=== PATIENT | female | born 1955 | race Caucasian/White ===

== ENCOUNTER 2020-06-04 09:44 | Outpatient (CLI) | payer MEDICARE, SELFPAY ==
--- NOTE | ~2020-06-04 | DEXA_ITS ---
Bone Density Report Name: Dolores Martinez Age: 64 Sex: Female Ethnicity: White Date of : 1955 Indication: postmenopausal; height loss; prior fracture; Referring Provider: Jimmie Boo Study: Bone densitometry was performed. Exam Date: June 04, 2020 Accession number: [id number] Bone Density: Region BMD T-score Z-score Classification AP Spine (L1-L4) 0.976 -0.6 1.2 Normal Femoral Neck (Left) 0.719 -1.2 0.4 Osteopenia Total Hip (Left) 0.893 -0.4 0.9 Normal Total Hip Bilateral Avg 0.907 -0.3 1.0 Normal Femoral Neck (Right) 0.723 -1.1 0.4 Osteopenia Total Hip (Right) 0.919 -0.2 1.1 Normal World Health Organization criteria for BMD impression classify patients as: Normal (T-score at or above -1.0), Osteopenia (T-score between -1.0 and -2.5), or Osteoporosis (T-score at or below -2.5). 10-year Fracture Risk(1): Major Osteoporotic Fracture 13% Hip Fracture 1.1% Reported Risk Factors: [place] (), Neck BMD=0.719, BMI=31.6, previous fracture (1) FRAX(R) Version 3.08. Fracture probability calculated for an untreated patient. Fracture probability may be lower if the patient has received treatment. Previous Exams: Region Exam Age BMD T-score BMD Change BMD Change Date g/cm2 vs Baseline vs Previous AP Spine(L1-L4) 06/04/2020 64 0.976 -0.6 -0.234(-19.3%) -0.234(-19.3%) 12/28/2006 51 1.210 1.5 Total Hip(Left) 06/04/2020 64 0.893 -0.4 -0.105(-10.5%) -0.105(-10.5%) 12/28/2006 51 0.998 0.5 Total Hip(Right) 06/04/2020 64 0.919 -0.2 -0.072(-7.2%)# -0.072(-7.2%)# 12/28/2006 51 0.991 0.4 *Denotes significance at 95% confidence level, LSC for AP Spine = 0.022 g/cm2, LSC for Total Hip = 0.027 g/cm2 Clinical Information Provided by Patient: Has had a low trauma fracture Has used the following medications: Vitamin D Patient maximum height was 67 Menopause Age: 50 No regular weight bearing exercise Does not regularly consume dairy products Drinks caffeinated beverages Onset of menses at age 13 Number of children 2 Impression: The patient has low bone mass, based on the Left Femoral Neck T-score. The patient has an estimated ten-year risk of hip fracture of 1.1% and an estimated ten-year risk of major fracture of 13%, based on the WHO FRAX algorithm. The patient has risk factors, including: previous fracture. No significant bone loss was observed. Discussion: BONE DENSITY IS LOW AT ONE OR MORE SKELETAL SITES. Th
--- NOTE | ~2020-06-04 | MM_ITS ---
EXAMINATION: MM screening swetha BI w jenaro HISTORY: Screening TECHNIQUE: Craniocaudal and mediolateral oblique 3-D tomosynthesis images were obtained and synthetic 2-D images were generated. CAD analysis was submitted and interpreted. COMPARISON: Comparison to multiple prior studies sequentially, with oldest reviewed study dated 04/13. BREAST PARENCHYMAL COMPOSITION: There are scattered areas of fibroglandular density. FINDINGS: There is no evidence of suspicious mass, calcification, or architectural distortion to sugg est malignancy in either breast. There has been no suspicious interval change. IMPRESSION: 1. No mammographic evidence of malignancy. 2. Recommend routine screening mammography in one year. BI-RADS Category 1: Negative Reviewed, dictated and finalized at location A.
== END 2020-06-04 09:45 | disposition home or self-care (01) ==
LOC: ANHIMG 09:47
PROVIDERS: PCP Family Medicine; Visit Provider Family Medicine
DX: Z12.31 Encounter for screening mammogram for malignant neoplasm of breast (principal); Z78.0 Asymptomatic menopausal state; M85.89 Other specified disorders of bone density and structure, multiple sites
CPT/HCPCS: 77063; 77067; 77080

== ENCOUNTER 2020-12-20 10:46 | Outpatient (CLI) | payer MEDICARE, SELFPAY | END 2020-12-20 10:47 | disposition home or self-care (01) | LOC: ANHCOVIDVC 10:46 | PROVIDERS: PCP Family Medicine | DX: Z23 Encounter for immunization (principal) | CPT/HCPCS: 0001A; 91300 ==

== ENCOUNTER 2021-01-10 10:43 | Outpatient (CLI) | payer MEDICARE, SELFPAY | END 2021-01-10 10:44 | disposition home or self-care (01) | LOC: ANHCOVIDVC 10:43 | PROVIDERS: PCP Family Medicine | DX: Z23 Encounter for immunization (principal) | CPT/HCPCS: 0002A; 91300 ==

== ENCOUNTER → 2021-02-21 10:07 | Outpatient (CLI) | payer MEDICARE, SELFPAY ==
--- NOTE | ~2021-02-21 | CT_ITS ---
EXAMINATION: CT lung screening DATE: 02/21/2021 10:47 INDICATION: Personal history of nicotine dependence, prior smoker with 30 pack year history TECHNIQUE: Computed tomography (CT) of the chest was performed without intravenous contrast. The dose -length product (DLP) was 226.43 mGy-cm. Automated exposure control and iterative reconstruction tech [employer] were employed. COMPARISON: None FINDINGS: There is mild emphysema. A 5 mm nodule is present in the right lower lobe on image 53. Calc ified pulmonary nodules are consistent with old granulomatous disease. No pathologically enlarged tho racic lymph nodes are identified. The heart size is normal. Calcified coronary artery atherosclerosis is noted. There is no pleural effusion or pneumothorax. The gallbladder is surgically absent. There is severe thoracic spondylosis. IMPRESSION: 1. Lung-RADS category 2: Benign appearance or behavior. Continue annual screening with noncontrast lo w-dose chest CT in 12 months. Reviewed, dictated and finalized at location A. IMPRESSION: 1. Lung-RADS category 2: Benign appearance or behavior. Continue annual screeni ng with noncontrast low-dose chest CT in 12 months.
== END ==
PROVIDERS: Visit Provider Family Medicine
DX: Z12.2 Encounter for screening for malignant neoplasm of respiratory organs (principal); Z87.891 Personal history of nicotine dependence
CPT/HCPCS: 71271

== ENCOUNTER → 2021-05-06 07:37 | Outpatient (CLI) | payer MEDICARE, SELFPAY ==
--- NOTE | ~2021-05-06 | US_ITS ---
EXAMINATION: US abdomen complete EXAM DATE: 05/06/2021 08:32 INDICATION: Abnormal levels of other serum enzymes. TECHNIQUE: Multiple grayscale and Doppler images of the complete abdomen were obtained (by a technolo gist who performed the scan) and subsequently reviewed. There is no prior study for comparison. FINDINGS: The abdominal aorta is normal in caliber. Visualized portion IVC is patent. The pancreatic head a nd body are normal in appearance. The pancreatic tail is not visualized. There is echogenic liver parenchyma, hepatic steatosis. There are no focal liver lesions identified. There is no evidence of intrahepatic biliary duct dilation. Portal venous flow was seen in the he patopedal, normal direction and has normal Doppler waveform. Common bile duct measures 8 mm, which is normal. The gallbladder fossa is unremarkable. Right kidney: There is normal contour and echogenicity. It measures 11.8 x 4.8 x 5.4 centimeters. There are no focal renal lesions identified. There is no hydronephrosis. Left kidney: There is normal contour and echogenicity. It measures 9.6 x 5.8 x 5.3 centimeters. Th ere are no focal renal lesions identified. There is no hydronephrosis. The spleen measures 10.1 centimeters and is morphologically normal. IMPRESSION: 1. Hepatic steatosis. Reviewed, dictated and finalized at location A. IMPRESSION: 1. Hepatic steatosis.
== END ==
PROVIDERS: PCP Family Medicine; Visit Provider Family Medicine
DX: K76.0 Fatty (change of) liver, not elsewhere classified (principal)
CPT/HCPCS: 76700

== ENCOUNTER 2021-07-13 09:00 | Outpatient (CLI) | payer MEDICARE, SELFPAY ==
--- NOTE | ~2021-07-13 | MM_ITS ---
EXAMINATION: MM screening swetha BI w jenaro HISTORY: Screening mammogram TECHNIQUE: Craniocaudal and mediolateral oblique 3-D tomosynthesis images were obtained and synthetic 2-D images were generated. CAD analysis was submitted and interpreted. COMPARISON: 06/04/2020, 04/13/2017 bilateral digital screening mammogram examinations BREAST PARENCHYMAL COMPOSITION: There are scattered areas of fibroglandular density. FINDINGS: Stable small circumscribed opacities in the mid to upper outer right breast, likely small b enign intramammary lymph nodes. Stable small intramammary lymph node in the mid outer left breast. Th ere is no evidence of suspicious mass, calcification, or architectural distortion to suggest malignan cy in either breast. There has been no suspicious interval change. IMPRESSION: 1. No mammographic evidence of malignancy. 2. Recommend routine screening mammography in one year. BI-RADS Category 2: Benign finding(s). Reviewed, dictated and finalized at location A.
== END 2021-07-13 09:01 | disposition home or self-care (01) ==
LOC: ANHIMG 09:04
PROVIDERS: PCP Family Medicine; Visit Provider Family Medicine
DX: Z12.31 Encounter for screening mammogram for malignant neoplasm of breast (principal)
CPT/HCPCS: 77063; 77067

== ENCOUNTER 2021-09-02 07:41 | Outpatient (CLI) | payer MEDICARE, SELFPAY ==
--- NOTE | 2021-09-02 | ECHO_ITS ---
Patient Info Name: Dolores Martinez Age: 65 years : 1955 Gender: Female Ht: 66 in Wt: 195 lbs BSA: 2.06 m2 HR: 61 bpm BP: 164 / 98 mmHg Technical Quality: Fair Exam Date: 09/02/2021 8:17 AM Exam Location: [facility] [place] Patient Status: Outpatient Admit Date: 09/02/2021 Staff Ordering Physician: JOHNNY KIRK MD Revenue Liaison: Lisbeth Hoover RDCS Attending Provider: JOHNNY KIRK MD Referring Physician: SHAIKH SALINAS; Exam Type: CA echo doppler color flow Study Info Indications R01.1 - Cardiac murmur, unspecified Complete two-dimensional, color flow and Doppler transthoracic echocardiogram is performed. Summary 1. Complete two-dimensional, color flow and Doppler transthoracic echocardiogram is performed. 2. Left ventricular chamber dimension is normal. 3. Left ventricular systolic function is normal, estimated at 60-65%. 4. There is mildly increased left ventricular wall thickness. 5. The left ventricular diastolic function is grade II diastolic dysfunction. 6. Global longitudinal strain is normal at -17.2%. 7. Left atrial chamber dimension is mildly enlarged. 8. There is moderate aortic valve sclerosis. 9. There is moderate aortic valve stenosis based on a peak velocity of 346 cm/s, mean gradient of 30 mmHg, and aortic valve area of 1.1 cm2. 10. There is trace aortic valve regurgitation. 11. The mitral valve has moderately calcified annulus. 12. There is trace mitral valve regurgitation. 13. Linear mass measuring 2.3 cm attached to anterior mitral valve annulus in left atrium seen only in 4 chamber view, suggests probable artifact. Consider KAVITA or cardiac CTA or MRI if clinically indicated. 14. No pulmonary hypertension, estimated pulmonary arterial systolic pressure is 36 mmHg. Left Ventricle Tissue doppler is not performed. Global longitudinal strain is normal at -17.2%. Left ventricular chamber dimension is normal. Left ventricular systolic function is normal, estimated at 60-65%. There is mildly increased left ventricular wall thickness. The left ventricular diastolic function is grade II diastolic dysfunction. Right Ventricle Right ventricular chamber dimension is normal. Right ventricular systolic function is normal and with normal TAPSE 2.3 cm. Left Atria Left atrial chamber dimension is mildly enlarged. Right Atria Right atrial chamber dimension is normal. Aortic Valve The aortic valve is not well visualized. Cannot determine number of aortic valve leaflets. There is moderate aortic valve sclerosis. There is moderate aortic valve stenosis based on a peak velocity of 346 cm/s, mean gradient of 30 mmHg, and aortic valve area of 1.1 cm2. There is trace aortic valve regurgitation. Pulmonic Valve There is no pulmonic regurgitation. Mitral Valve The mitral valve has moderately calcified annulus. There is no mitral valve stenosis. There is trace mitral valve regurgitation. Linear mass measuring 2.3 cm attached to anterior mitral valve annulus in left atrium seen only in 4 chamber view, suggests probable artifact. Consider KAVITA or cardiac CTA or MRI if clinically indicated. Tricuspid Valve There is no tricuspid valve regurgitation. No pulmonary hypertension, estimated pulmonary arterial systolic pressure is 36 mmHg. Pericardium/Pleural There is no pericardial effusion. Inferior Vena Cava Normal inferior vena cava with >50% collapse upon inspiration consistent with normal right atrial pressure, 5 mmHg. Aorta The aortic ro
== END 2021-09-02 07:42 | disposition home or self-care (01) ==
LOC: ANHCARD 07:47
PROVIDERS: PCP Family Medicine
DX: R01.1 Cardiac murmur, unspecified (principal)
CPT/HCPCS: 93306

== ENCOUNTER 2022-02-15 10:32 | Emergency (ER) | payer MEDICARE, SELFPAY ==
--- NOTE | ~2022-02-15 | XR_ITS ---
EXAMINATION: XR foot RT min 3V, XR ankle RT min 3V DATE: 02/15/2022 10:50 INDICATION: Right foot and ankle pain post trauma TECHNIQUE: 1. Anteroposterior, mortise, additional oblique and lateral view of the right ankle were obtained. 2. Dorsoplantar, two oblique and lateral views of the right foot were obtained. COMPARISON: None. FINDINGS: Prior internal fixation of an old healed lateral malleolar fracture with an interfragmentary screw an d lateral plate and screw fixation. There are also postoperative change of prior bunionectomy and ernie lignment osteotomies at the neck of the first metatarsal fixed with a pair of screws and at the neck of the proximal phalanx with medial sided cerclage wire. Additional likely chronic osteotomy at the h ead of the fifth proximal phalanx with widening of the fifth proximal interphalangeal joint. Chronic corticated ossicles along the tip the medial malleolus likely sequela of chronic medial ankle sprain. Ossific density along the dorsal neck of the talus of indeterminate age but would favor chronic whic h could be either degenerative or more likely sequela of old avulsion injury. No definitive acute fra cture. 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 The soft tissues are unremarkable. IMPRESSION: 1. Age-indeterminate but more likely chronic small ossicle at the dorsal neck of the talus which coul d be either degenerative or sequela of an avulsion fracture. Correlate for point tenderness at this l ocation. 2. Multiple chronic postoperative changes at the right foot and ankle as detailed above. Reviewed, dictated and finalized at location B. IMPRESSION: 1. Age-indeterminate but more likely chronic small ossicle at the dorsal neck o f the talus which could be either degenerative or sequela of an avulsion fractu re. Correlate for point tenderness at this location. 2. Multiple chronic postoperative changes at the right foot and ankle as detail ed above.
--- NOTE | 2022-02-15 10:48 | ED.LOWEXIN ---
HPI - Extremity Injury (Lower) General Chief Complaint: Extremity Injury, Lower Stated Complaint: R ANKLE INJURY Time Seen by Provider: 02/15/22 10:48 Source: patient Mode of arrival: ambulatory Limitations: no limitations History of Present Illness HPI Narrative: Ms. Geronimo is a 66-year-old female patient presenting to the clinic today with complaints of right ankle/foot pain after tripping off her porch yesterday. She reports that she tripped due to a rake on the porch. She has had prior surgery to the ankle and is concerned that she may have injured it further. Is having pain with walking otherwise pain is very mild. Related Data Allergies Allergy/AdvReac Type Severity Reaction Status Date / Time bimatoprost [From Lumigan] Allergy Severe eye red Verified 02/15/22 10:40 erythromycin base Allergy Unknown Nausea Verified 02/15/22 10:40 potassium iodide Allergy Unknown swelling Verified 02/15/22 10:40 PIMA INHALER Allergy Mild FACIAL Uncoded 02/15/22 10:40 TINGLING Review of Systems Review of Systems: Pertinent positives per HPI. Patient denies any fever, chills, rash, headache, visual changes, dizziness, cough, runny nose, sore throat, shortness of breath, chest pain, palpitations, nausea, vomiting, diarrhea, constipation, abdominal pain, or any urinary issues. PMFSH Family History Family History Father Family history of cardiovascular disease Family history of dementia Sibling Family history of lung cancer, Onset Age: 51 Other Family history of allergic disorder Family history of glaucoma Family history of headache disorder Social History Social History Alcohol intake: current Comments At the time of my signature, I reviewed and agree with the nursing past medical, surgical, social, and family history. There is no relevant family history pertinent to the patient complaint. Exam Narrative: General: Well-developed, well nourished, in no apparent distress Head: Normocephalic, atraumatic. Cardio: Regular rate and rhythm, s1 and s2 normal, no murmur appreciated. Resp: Clear to auscultation bilaterally, no rhonchi, rales, wheezing or rubs. Musculoskeletal: No deformity, mild tenderness to palpation over the lateral right ankle and lateral/medial proximal foot. Is able to walk on it however it is painful, grossly normal range of motion, muscle strength strong and equal, peripheral pulse strong, mild swelling over the lateral right ankle and foot, no cyanosis, normal gait and station Course Course Emergency Course: Portions of this record may have been created with voice recognition software. Level of Care: Express Care Visit Vital Signs Vital signs: Vital Signs Temperature 36.4 C 02/15/22 10:56 Pulse Rate 76 02/15/22 10:56 Respiratory Rate 16 02/15/22 10:56 Blood Pressure 157/93 H 02/15/22 10:56 Pulse Oximetry 99 02/15/22 10:56 Temperature 36.4 C 02/15/22 10:56 Pulse Rate 76 02/15/22 10:56 Respiratory Rate 16 02/15/22 10:56 Blood Pressure 157/93 H 02/15/22 10:56 Pulse Oximetry 99 02/15/22 10:56 Vital signs reviewed MDM - Extremity Injury (Lower) MDM Narrative Medical decision making narrative: At the time of visit patient is resting comfortably on the exam table, x-rays were performed and were negative for any fracture or malalignment and all her hardware is intact however, there is a age-indeterminate suspicious old ossicle avulsion fracture of the talus bone. I suspect that she has had ankle strain/foot strain since this avulsion fracture appears to be from her previous injury. We will apply Werner wrap to the right ankle and foot and supportive measures were discussed with patient she voiced understanding of discharge. We will have her follow-up with her orthopedic for further evaluation if symptoms persist. Differential Diagnosis D
[2022-02-15 10:56] VITALS: BP 157/93; PULSE 76; RESP 16; TEMP 36.4; O2SAT 99
== END 2022-02-15 11:25 | disposition home or self-care (01) ==
PROVIDERS: Emergency Provider Nurse Practitioner Family; PCP Family Medicine
DX: S93.401A Sprain of unspecified ligament of right ankle, initial encounter (principal); S96.911A Strain of unspecified muscle and tendon at ankle and foot level, right foot, initial encounter; W01.0XXA Fall on same level from slipping, tripping and stumbling without subsequent striking against object, initial encounter; I10 Essential (primary) hypertension
CPT/HCPCS: 73610; 73630; 99213; G0463

== ENCOUNTER 2022-09-27 01:03 | Day surgery (SDC) | payer MEDICARE, SELFPAY ==
[2022-09-26 15:19] VITALS: BMI 30.5
[2022-09-27] VITALS (14 sets, daily range): BP systolic 114–163; BP diastolic 84–100; PULSE 65–76; RESP 12–20; TEMP 36.4–36.7; O2SAT 94–100; BMI 31.6
--- NOTE | 2022-09-27 10:20 | WPDMODSED ---
Moderate Sedation Note-Pt Data Patient Data Diagnosis: Aortic stenosis, mitral valve echodensity Present Complaint: None Procedure to be performed/Plan: Elective transesophageal echocardiogram Allergies Allergy/AdvReac Type Severity Reaction Status Date / Time bimatoprost [From Lumigan] Allergy Severe eye red Verified 09/27/22 09:05 erythromycin base Allergy Unknown Nausea Verified 09/27/22 09:05 potassium iodide Allergy Unknown swelling Verified 09/27/22 09:05 morphine Allergy Nausea and Verified 09/27/22 09:05 Vomiting PIMA INHALER Allergy Mild FACIAL Uncoded 09/27/22 09:05 TINGLING Home Medications Medication Instructions Recorded Confirmed Type citalopram 20 mg tablet See Rx Instructions .Route 06/28/22 09/26/22 Rx .COMPLEX #90 tabs amlodipine 5 mg tablet See Rx Instructions .Route 08/01/22 09/27/22 Rx .COMPLEX #90 tabs losartan 100 mg tablet See Rx Instructions .Route 09/04/22 09/27/22 Rx .COMPLEX #90 tabs hydrochlorothiazide 25 mg tablet See Rx Instructions .Route 09/05/22 09/26/22 Rx .COMPLEX #90 tabs Lactobac 51-Bifidobac 1 cap PO DAILY 09/26/22 09/26/22 History 3-L.lactis-S.thermophilus 4 billion cell capsule (Daily Probiotic (10 Strains)) cholecalciferol (vitamin D3) 25 75 mcg PO DAILY 09/26/22 09/26/22 History mcg (1,000 unit) capsule (Vitamin D3) famotidine 20 mg tablet 20 mg PO DAILY 09/26/22 09/26/22 History thiamine HCl (vitamin B1) 100 mg 100 mg PO DAILY 09/26/22 09/26/22 History tablet Sedation/Anesthesia: No previous sedation/anesthesia problems (including family history). [facility] Past Medical History Medical History Aortic stenosis 12-21 aortic stenosis 1.1cm2 needs yearly echo Essential (primary) hypertension Rheumatoid arthritis Seeing specialist at [facility] Family History Family History Father Family history of cardiovascular disease Family history of dementia Sibling Family history of lung cancer, Onset Age: 51 Other Family history of allergic disorder Family history of glaucoma Family history of headache disorder Social History Social History Smoking packs per day: 0.5 Smoking cigarettes per day: 10.0 Years smoked: 25 Smoking pack-years: 12.50 Smoking status: Former smoker Tobacco type: cigarettes Second hand tobacco smoke exposure: Yes Smoking end date: 11/20/06 Additional smoking assessment comments: QUIT SMOKING 15 YEARS AGO Alcohol intake: current Drinks per week: 15 Alcohol use details: UP TO 3 GLASSES OF WINE NEAR DAILY Substance use: never Substance use type: does not use Living arrangements: alone Spiritual care concerns: No Mod Sed Physical Exam Physical Exam Pre Procedural Exam: Normal: Appearance, Eyes, Ears, Nose, Neck (Neck supple, normal range of motion), Throat (Posterior hypopharynx clear, nonerythematous), Airway (Normal anatomy, no obstruction), Lungs (Clear to auscultation bilaterally), Heart Size, Heart Rate, Heart Rhythm (Late-peaking systolic murmur), Neuro Exam, Abdomen, Breasts, Extremities and Skin Hours since solid foods: 12 Hours since liquid intake: 12 Mallampati Classification: class II Internal Medicine - PN: Obj Da Vital Signs Vital Signs: Vital Signs - 24 hr 09/27/22 09:07 09/27/22 10:25 09/27/22 11:15 Temperature 36.7 C 36.4 C L Pulse Rate 69 69 68 Respiratory Rate 13 20 15 Blood Pressure 149/84 H 163/95 H 135/92 H Pulse Oximetry 97 97 94 Oxygen Delivery Room Air Room Air Room Air Oxygen Flow Rate 09/27/22 10:26 09/27/22 10:30 09/27/22 10:35 Temperature Pulse Rate 76 73 Respiratory Rate 18 16 13 Blood Pressure 160/90 H Pulse Oximetry 98 100 94 Oxygen Delivery Nasal Cannula Nasal Cannula Nasal Cannula Oxygen Flow Rate 2 2 3 09/27/22 10:37 09/27/22
--- NOTE | 2022-09-27 12:17 | WPDHPUPDATE1 ---
History and Physical Update Update Date/Time: 09/27/22 10:20 History and Physical has been reviewed, including an updated exam of the patient. There are NO changes in the patient's condition. Risks, benefits, and alternatives have been discussed and questions answered. Patient agrees to proceed with procedure.
--- NOTE | 2022-09-27 12:17 | WPDTEECHO ---
[facility] TransEsophageal Echocardiogram Date of procedure: 09/27/22 Procedure Type: Elective Transesophageal echocardiogram Diagnosis: Aortic stenosis, mitral valve echodensity Indications: Aortic stenosis, mitral valve echodensity Image Quality: Acceptable Findings: Brief history present illness: Patient is a pleasant 66-year-old female with a past medical history significant for polyarthritis, hypertension, aortic stenosis and echodensity noted on mitral valve by surface echocardiogram referred for transesophageal echocardiogram for clarification of aortic valve anatomy and mitral valve pathology. Procedure in detail: After verbal and written informed consent was obtained the patient risks, benefits, and alternatives explained in detail the patient agreed to proceed with the plan of care as outlined above. The patient was evaluated at bedside in the [facility] procedure room. The posterior oropharynx, neck, and jaw angle all within normal limits on examination. Lungs were clear to auscultation. See pre-sedation note for further details The patient was then placed in the appropriate 30 to 45 degree angle supine position at a slight left lateral decubitus position. Patient was monitored throughout the study with telemetry, oxygen saturation, end-tidal CO2 monitoring, blood pressure, heart rate, and respirations. The posterior hypopharynx was then locally anesthetized using repeated administration of Hurricaine spray as well as gargled viscous lidocaine. After local anesthetic of the posterior hypopharynx was achieved and the oral bite block placed, moderate sedation was administered. After confirmation of adequate moderate sedation, the transesophageal echocardiogram probe was advanced through the oral bite block into the posterior hypopharynx and into the esophagus easily and without complication. Multiple, multiplanar echocardiographic images were obtained in multiple standard re- projections. Pulsed wave, continuous-wave, and color-flow Doppler were utilized in conjunction with this study. At the conclusion of the study, the transesophageal echocardiogram probe was removed easily and without complication. The patient tolerated the procedure well without difficulty. Patient was in sinus rhythm throughout the study. Moderate Sedation/Anesthesia administration: Patient reports no prior problems with sedation/anesthesia. Please see pre-sedation noted for physical examination documentation. As noted above, after adequate local anesthesia of the posterior hypopharynx was achieved, a total of 4 mg intravenous Versed and a total of 100 mcg intravenous Fentanyl in multiple divided doses was administered for moderate sedation. Sedation start time was 1029 and end time was 1053 for a total intra-service/procedure face-face time of 24 minutes. Sedation was administered by a qualified/certified observer Danii Gallardo RN under my supervision with intra-procedure [id number] observation and management throughout the entirety of the procedure. There were no other issues or complications and patient tolerated the procedure well. See post-anesthesia documentation. FINDINGS: LEFT VENTRICLE: Size and systolic function were within normal limits without wall motion abnormalities with ejection fraction of 60%, mild concentric left ventricle hypertrophy. Prominent papillary muscles.. RIGHT VENTRICLE: Size and systolic function within normal limits. LEFT ATRIUM: Normal size. RIGHT ATRIUM: Normal size. INTERATRIAL SEPTUM: Interatrial septum is thin and somewhat hypermobile otherwise anatomically normal without evidence of shunt with color-flow Doppler nor with injection of agitated saline with and without Valsalva. MITRAL VALVE: Mitral valve is anatomically normal with preserved leaflet excursion and trivial regurgitation. Minimal thickening of the leaflet tips without mobile echodensity noted. AORTIC VALVE: The aortic valve was di
== END 2022-09-27 12:00 | disposition home or self-care (01) ==
PROVIDERS: PCP Family Medicine; Visit Provider Internal Medicine Cardiovascular Disease
PROC: (CPT 93312; principal; 2022-09-27 10:00)
DX: I35.0 Nonrheumatic aortic (valve) stenosis (principal); R93.1 Abnormal findings on diagnostic imaging of heart and coronary circulation; I10 Essential (primary) hypertension; M06.9 Rheumatoid arthritis, unspecified; Z87.891 Personal history of nicotine dependence
CPT/HCPCS: 93312; 93320; 93325; J2250; J3010; J7030

== ENCOUNTER → 2023-04-02 13:19 | Outpatient (CLI) | payer MEDICARE, SELFPAY ==
--- NOTE | ~2023-04-02 | MM_ITS ---
EXAMINATION: MM screening swetha BI w jenaro HISTORY: Screening mammogram TECHNIQUE: Craniocaudal and mediolateral oblique 3-D tomosynthesis images were obtained and synthetic 2-D images were generated. CAD analysis was submitted and interpreted. COMPARISON: 07/13/2021, 06/04/2020, 04/13/2017 bilateral screening mammogram examinations BREAST PARENCHYMAL COMPOSITION: The breasts are almost entirely fatty. FINDINGS: There is no evidence of suspicious mass, calcification, or architectural distortion to sugg est malignancy in either breast. There has been no suspicious interval change. IMPRESSION: 1. No mammographic evidence of malignancy. 2. Recommend routine screening mammography in one year. BI-RADS Category 1: Negative Reviewed, dictated and finalized at location A.
== END ==
PROVIDERS: PCP Family Medicine; Visit Provider Family Medicine
DX: Z12.31 Encounter for screening mammogram for malignant neoplasm of breast (principal)
CPT/HCPCS: 77063; 77067

== ENCOUNTER → 2023-05-03 09:21 | Outpatient (CLI) | payer MEDICARE, SELFPAY ==
--- NOTE | ~2023-05-03 | CT_ITS ---
EXAMINATION: CT lung screening DATE: 05/03/2023 09:36 INDICATION: Personal history of nicotine dependence, prior smoker with 30 pack year history TECHNIQUE: Computed tomography (CT) of the chest was performed without intravenous contrast. The dose -length product (DLP) was 263.49 mGy-cm. Automated exposure control and iterative reconstruction tech [employer] were employed. COMPARISON: 02/21/2021 FINDINGS: There are stable, scattered nodules of the lungs, the largest of which measures 5 mm in the right lower lobe. There is mild emphysema. Calcified pulmonary nodules are consistent with old granu lomatous disease. No pleural effusion or pneumothorax. No pathologically enlarged thoracic lymph node s are identified. The heart size is normal. Calcified coronary artery atherosclerosis is noted. There is severe thoracic spondylosis. IMPRESSION: 1. Lung-RADS category 2: Benign appearance or behavior. Continue annual screening with noncontrast lo w-dose chest CT in 12 months. Reviewed, dictated and finalized at location L. IMPRESSION: 1. Lung-RADS category 2: Benign appearance or behavior. Continue annual screeni ng with noncontrast low-dose chest CT in 12 months.
== END ==
PROVIDERS: PCP Family Medicine; Visit Provider Family Medicine
DX: Z12.2 Encounter for screening for malignant neoplasm of respiratory organs (principal); Z87.891 Personal history of nicotine dependence
CPT/HCPCS: 71271

== ENCOUNTER 2023-07-06 01:05 | Day surgery (SDC) | payer MEDICARE, SELFPAY ==
[2023-07-06] VITALS (18 sets, daily range): BP systolic 102–157; BP diastolic 49–97; PULSE 57–75; RESP 12–20; TEMP 37; O2SAT 95–100; BMI 29.0
[2023-07-06 08:13] LABS: Basophils Percent Auto 0.5 % (0.2-1.2); Eosinophils Absolute Auto 0.1 K/mm3 (0-0.3); Eosinophils Percent Auto 1.7 % (0-4.4); Hemoglobin 13.1 g/dL (12.0-15.0); Immature Granulocyte Absolute 0.01 K/mm3 (0.00-0.031); Immature Granulocyte Percent A 0.2 % (0-0.5); Lymphocytes Absolute Auto 1.49 K/mm3 (0.9-3.2); Lymphocytes Percent Auto 36.3 % (18.3-44.2); Mean Corpuscular HGB Conc 33.6 g/dl (32-36); Mean Corpuscular Hemoglobin 30.6 pg (26-34); Mean Corpuscular Volume 91.1 fl (80-100); Mean Platelet Volume 8.6 fl (7.4-10.4); Monocytes Absolute Auto 0.3 K/mm3 (0.1-0.6); Monocytes Percent Auto 6.6 % (2.6-8.5); Neutrophils Absolute Auto 2.3 K/mm3 (1.3-6.7); Neutrophils Percent Auto 54.7 % (45.5-73.1); Platelet Count Result 162 k/mm3 (150-375); Red Blood Count 4.28 M/mm3 (4.2-5.4); Red Cell Distribution Width 12.6 % (11.5-14.5); White Blood Count 4.1 K/mm3 (4.5-10.0)
[2023-07-06 08:22] LABS: Anion Gap 6 mmol/L (8-16); Blood Urea Nitrogen 10 mg/dL (7-17); Calcium 9.4 mg/dL (8.4-10.2); Carbon Dioxide 30 mmol/L (22-30); Chloride 99 mmol/L (98-107); Estimated CRCL calculation 71 ml/min; Estimated Glomerular Filt Rate > 60; Glucose 94 mg/dL (65-110); INR 0.9; Potassium 3.3 mmol/L (3.4-5.0); Sodium 135 mmol/L (137-145)
--- NOTE | 2023-07-06 09:29 | WPDMODSED ---
Moderate Sedation Note-Pt Data Patient Data Diagnosis: Aortic valve stenosis Present Complaint: no complaints Procedure to be performed/Plan: coronary angiogram Allergies Allergy/AdvReac Type Severity Reaction Status Date / Time bimatoprost [From [place]] Allergy Severe eye red Verified 07/06/23 07:45 potassium iodide Allergy Unknown swelling Verified 07/06/23 07:45 morphine AdvReac Intermediate Nausea and Verified 07/06/23 07:45 Vomiting erythromycin base AdvReac Unknown Nausea Verified 07/06/23 07:45 PIMA INHALER Allergy Mild FACIAL Uncoded 07/05/23 12:44 TINGLING Home Medications Medication Instructions Recorded Confirmed Type Lactobac 51-Bifidobac 1 cap PO DAILY 09/26/22 07/05/23 History 3-L.lactis-S.thermophilus 4 billion cell capsule (Daily Probiotic (10 Strains)) thiamine HCl (vitamin B1) 100 mg 100 mg PO DAILY 09/26/22 07/05/23 History tablet famotidine 20 mg tablet 20 mg PO DAILY #90 tabs 04/27/23 07/05/23 Rx tirzepatide 5 mg/0.5 mL 5 mg (0.5 mL) subcut WEEKLY #6 mL 05/31/23 07/05/23 Rx subcutaneous pen injector (Mounjaro) amlodipine 5 mg tablet 5 mg PO DAILY 07/05/23 07/05/23 History cholecalciferol (vitamin D3) 125 125 mcg PO DAILY 07/05/23 07/05/23 History mcg (5,000 unit) tablet citalopram 20 mg tablet 20 mg PO DAILY 07/05/23 07/05/23 History hydrochlorothiazide 25 mg tablet 25 mg PO DAILY 07/05/23 07/05/23 History losartan 100 mg tablet 100 mg PO DAILY 07/05/23 07/05/23 History Current Medications: Active Medications Sodium Chloride (Normal Saline Iv) 500 mls @ 100 mls/hr IV CONT .Q5H [place] Sedation/Anesthesia: No previous sedation/anesthesia problems (including family history). [facility] Past Medical History Medical History Aortic stenosis 12-21 aortic stenosis 1.1cm2 needs yearly echo Essential (primary) hypertension Rheumatoid arthritis Seeing specialist at [facility] Unspecified nasal polyp Family History Family History Father Family history of cardiovascular disease Family history of dementia Sibling Family history of lung cancer, Onset Age: 51 Other Family history of allergic disorder Family history of glaucoma Family history of headache disorder Social History Social History Smoking packs per day: 1 Smoking cigarettes per day: 20.0 Years smoked: 20 Smoking pack-years: 20.00 Smoking status: Never smoker Tobacco type: cigarettes Second hand tobacco smoke exposure: Yes Smoking end date: 10/22/12 Additional smoking assessment comments: QUIT SMOKING 15 YEARS AGO Alcohol intake: current Drinks per week: 8 Alcohol use details: wine 1-2 with dinner Substance use: never Substance use type: does not use Lack of Transportation: No Lack of Food: Never True Current Housing: I Have Housing Concerned About Future Housing: No Difficulty Paying Gas/Electric Bills: No Difficulty Paying for Meds: No Currently Unemployed: No Education: Trade/Vocational Certificate Difficulty w/ Childcare or Family Care: No Living arrangements: alone Spiritual care concerns: No Mod Sed Physical Exam Physical Exam Pre Procedural Exam: Normal: Appearance, Neck, Throat, Airway, Lungs, Heart Size, Heart Rate, Heart Rhythm, Neuro Exam and Extremities Hours since solid foods: 12 Hours since liquid intake: 12 Mallampati Classification: class II Internal Medicine - PN: Obj Da Vital Signs Vital Signs: Vital Signs - 24 hr 07/06/23 07:50 Temperature 37.0 C Pulse Rate 69 Respiratory Rate 17 Blood Pressure 122/70 Pulse Oximetry 100 Oxygen Delivery Room Air Meds/Results Medications: Active Medications Generic Name Dose Route Start Last Admin Trade Name Freq PRN Reason Stop Dose Admin Sodium Chloride 500 mls @ 100 mls/hr 07/06/23 07:30
--- NOTE | 2023-07-06 09:45 | P.PCNCC_ITS ---
Cardiac Cath Procedure Note Date of procedure:: 07/06/23 Performing physician:: Rick Guzman MD Indication:: pre TAVR workup Brief clinical history:: this is a 67-year-old lady with severe symptomatic aortic stenosis. As part of her pre TAVR workup coronary angiography has been requested. Procedure Procedure performed:: Left and right coronary angiogram Sedation/Medication given:: fentanyl 50 mg Versed 2 mg case start time 9:17 a.m. case end time 9:25 a.m. sedation provided by Belkys Umanzor RN, trained observer Access site:: right femoral artery Estimated blood loss:: less than 20 cc Procedure note:: patient was brought to the cardiac catheterization lab in the postabsorptive state where the right femoral triangle was prepared and draped in normal fashion. Anesthesia was provided with 1% lidocaine infiltrated locally. Using the modified Seldinger technique a 5 [place] [employer] sheath was placed into the right femoral artery. I then used a 5 [place] [employer] FL4 catheter to engage and inject the left coronary artery in multiple projections. Following this a 5 [place] [employer] JR4 catheter was used to engage and inject the right coronary artery in orthogonal projections. Following this the cineangiograms were reviewed and the case was terminated. Patient was taken to the holding area for manual sheath removal. Procedure was well tolerated and uncomplicated there was no evidence of groin hematoma when she left the cardiac catheterization lab. Findings:: Central aortic pressure is 105/72 the left main coronary artery has a superior takeoff but is widely patent and large caliber the left anterior descending is a large caliber artery extending down to the apex the LAD and its branches are smooth and angiographically normal in appearance the circumflex is a large caliber vessel giving rise to the marginal branches. The circumflex is smooth and angiographically normal in appearance the right coronary artery is large in caliber dominant to the posterior circulation it is also smooth and angiographically normal in appearance Conclusion:: 1. right coronary dominant circulation with no angiographic evidence of coronary artery disease Rick Guzman MD [facility]
== END 2023-07-06 15:19 | disposition home or self-care (01) ==
PROVIDERS: PCP Family Medicine; Visit Provider Specialist
PROC: (CPT 93454; principal; 2023-07-06 09:00)
DX: Z01.810 Encounter for preprocedural cardiovascular examination (principal); I35.0 Nonrheumatic aortic (valve) stenosis; I10 Essential (primary) hypertension; M06.9 Rheumatoid arthritis, unspecified; Z87.891 Personal history of nicotine dependence
CPT/HCPCS: 36415; 80048; 85025; 85610; 93454; C1887; C1894; J1644; J2250; J3010; J7040

== ENCOUNTER 2023-11-28 11:30 | Outpatient (RCR) | payer MEDICARE, SELFPAY ==
[2023-08-28 12:07] VITALS: PULSE 72
== END 2023-11-28 12:07 | disposition home or self-care (01) ==
LOC: ANHCPREHAB 11:30
PROVIDERS: PCP Family Medicine; Visit Provider Internal Medicine Cardiovascular Disease
DX: Z95.2 Presence of prosthetic heart valve (principal)
CPT/HCPCS: 93798

== ENCOUNTER 2024-05-06 09:51 | Outpatient (CLI) | payer MEDICARE, SELFPAY ==
--- NOTE | ~2024-05-06 | CT_ITS ---
CT Scan of the Chest without Contrast: Clinical Indication: Lung cancer screening, nicotine dependence Technique: Contiguous sections were acquired throughout the chest without intravenous contrast. Dose reduction technique was used on this scan by utilizing automated exposure control and iterative recon struction technique. The dose-length product (DLP) was 173.53 mGy-cm. COMPARISON: 05/03/2023 Findings: There is no evidence of any significant mediastinal, hilar or axillary lymphadenopathy. Status post a ortic valve replacement. There is no evidence of pleural or pericardial effusion. Stable 5 mm nodule in the superior segment right lower lobe. Stable probable calcified small right ap ical granulomas. Images through the upper abdomen reveal no abnormalities. Impression: Lung RADS 2: Benign appearance. 12 month follow-up screening CT advised. Reviewed, dictated and finalized at [facility]. Impression: Lung RADS 2: Benign appearance. 12 month follow-up screening CT advised.
== END 2024-05-06 09:52 ==
LOC: MICIMG 09:52
PROVIDERS: PCP Family Medicine; Visit Provider Family Medicine
DX: Z12.2 Encounter for screening for malignant neoplasm of respiratory organs (principal); Z87.891 Personal history of nicotine dependence
CPT/HCPCS: 71271

== ENCOUNTER 2024-08-05 01:12 | Day surgery (SDC) | payer MEDICARE, SELFPAY ==
[2024-07-15 15:58] VITALS: BMI 29.9
[2024-08-05 08:47] VITALS: BP 146/80; PULSE 75; RESP 20; TEMP 35.7; O2SAT 100; BMI 29.6
[2024-08-05] MEDS: LACTATED RINGERS 1,000 ML 150 ML IV CONT (08:59)
[2024-08-05] MEDS: GENTAMICIN 80MG/SOD CHL 50 ML 80 MG/50 ML BAG 100 MG IVPB (09:01)
--- NOTE | 2024-08-05 09:19 | WPDANESEPPF ---
Anes - Initial Pre Proc Eval Procedure: Operation Date: 08/05/24 10:00 Proposed Procedures p Screening Colonoscopy - Israel Carpio MD Date/Time: 08/05/24 09:19 Surgeon: Israel Carpio MD Pre Op Diagnosis: neoplasm screening Patient Data Age: 68 Gender: F Height: 1.68 m Weight: 83.2 kg Last Vital Signs Temp 35.7 C L 08/05/24 08:47 Pulse 75 08/05/24 08:47 Resp 20 08/05/24 08:47 BP 146/80 H 08/05/24 08:47 Pulse Ox 100 08/05/24 08:47 O2 Del Method Room Air 08/05/24 08:47 Allergies Allergy/AdvReac Type Severity Reaction Status Date / Time bimatoprost [From Jake] Allergy Severe eye red Verified 08/05/24 08:46 potassium iodide Allergy Unknown swelling Verified 08/05/24 08:46 morphine AdvReac Intermediate Nausea and Verified 08/05/24 08:46 Vomiting erythromycin base AdvReac Unknown Nausea Verified 08/05/24 08:46 PIMA INHALER Allergy Mild FACIAL Uncoded 08/05/24 08:46 [place] Home Medications Medication Instructions Recorded Confirmed Type Lactobac 51-Bifidobac 1 cap PO DAILY 09/26/22 08/05/24 History 3-L.lactis-S.thermophilus 4 billion cell capsule (Daily Probiotic (10 Strains)) thiamine HCl (vitamin B1) 100 mg 100 mg PO DAILY 09/26/22 08/05/24 History tablet cholecalciferol (vitamin D3) 125 125 mcg PO DAILY 07/05/23 08/05/24 History mcg (5,000 unit) tablet citalopram 20 mg tablet 20 mg PO DAILY #90 tabs 10/11/23 08/05/24 Rx hydrochlorothiazide 25 mg tablet 25 mg PO DAILY #90 tabs 10/23/23 08/05/24 Rx losartan 100 mg tablet 100 mg PO DAILY #90 tabs 01/07/24 08/05/24 Rx aspirin 81 mg tablet,delayed 81 mg PO DAILY 03/26/24 08/05/24 History release biotin 5 mg capsule 5 mg PO DAILY 03/26/24 08/05/24 History famotidine 20 mg tablet 20 mg PO DAILY #90 tabs 04/01/24 08/05/24 Rx Patient hx anesthesia problems: none Family hx anesthesia problems: none Results Review: All pre-operative results and documents have been reviewed as part of the pre-operative evaluation. [facility] Past Medical History Medical History (Updated 08/05/24 @ 09:20 by Jose Armando Lopez MD) Aortic stenosis 12-21 aortic stenosis 1.1cm2 needs yearly echo Essential (primary) hypertension Femoral artery transection Hypertension PVD (peripheral vascular disease) Rheumatoid arthritis Seeing specialist at [facility] Unspecified nasal polyp Surgical History Surgical History S/P TAVR (transcatheter aortic valve replacement) Family History Family History Father Family history of cardiovascular disease Family history of dementia Sibling Family history of lung cancer, Onset Age: 51 Other Family history of allergic disorder Family history of glaucoma Family history of headache disorder Social History Social History Smoking packs per day: 0.75 Smoking cigarettes per day: 15.0 Years smoked: 20 Smoking pack-years: 15.00 Smoking status: Former smoker Tobacco type: cigarettes Second hand tobacco smoke exposure: No Smoking end date: 10/22/12 Additional smoking assessment comments: smoked off and on for approximately 20 years Alcohol intake: current Drinks per week: 14 Alcohol use details: wine 1-2 with dinner Substance use: never Substance use type: does not use Lack of Transportation: No Lack of Food: Never True Current Housing: I Have Housing Concerned About Future Housing: No Difficulty Paying Gas/Electric Bills: No Difficulty Paying for Meds: No Currently Unemployed: No Education: Trade/Vocational Certificate Difficulty w/ Childcare or Family Care: No Living arrangements: alone Spiritual care concerns: No Anes - Eval Final PreProcedure Day of Procedure 08/05/24 09:19 Patient weight: obese Heart: regular rate and rhythm
[2024-08-05] MEDS: AMPICILLIN 2 GM/NS 100 ML 2 GM/100 ML BAG IVPB (09:31)
--- NOTE | 2024-08-05 09:47 | PM.HPGS ---
History of Present Illness History of Present Illness Consent: Risks, benefits, and alternatives have been discussed and questions answered. Patient agrees to proceed with procedure. Chief complaint: neoplasm screening Narrative: Dolores Martinez is a 68 year old female here for first colonoscopy, + cologuard Review of Systems Review of Systems: All systems reviewed & are unremarkable except as noted in HPI and below PMFSH Past Medical History Medical History (Updated 08/05/24 @ 09:48 by Israel Carpio MD) Aortic stenosis 12-21 aortic stenosis 1.1cm2 needs yearly echo Essential (primary) hypertension Femoral artery transection Hypertension Positive colorectal cancer screening using Cologuard test PVD (peripheral vascular disease) Rheumatoid arthritis Seeing specialist at [facility] Unspecified nasal polyp Surgical History Surgical History S/P TAVR (transcatheter aortic valve replacement) Family History Family History Father Family history of cardiovascular disease Family history of dementia Sibling Family history of lung cancer, Onset Age: 51 Other Family history of allergic disorder Family history of glaucoma Family history of headache disorder Social History Social History Smoking packs per day: 0.75 Smoking cigarettes per day: 15.0 Years smoked: 20 Smoking pack-years: 15.00 Smoking status: Former smoker Tobacco type: cigarettes Second hand tobacco smoke exposure: No Smoking end date: 10/22/12 Additional smoking assessment comments: smoked off and on for approximately 20 years Alcohol intake: current Drinks per week: 14 Alcohol use details: wine 1-2 with dinner Substance use: never Substance use type: does not use Lack of Transportation: No Lack of Food: Never True Current Housing: I Have Housing Concerned About Future Housing: No Difficulty Paying Gas/Electric Bills: No Difficulty Paying for Meds: No Currently Unemployed: No Education: Trade/Vocational Certificate Difficulty w/ Childcare or Family Care: No Living arrangements: alone Spiritual care concerns: No Meds Home Medications and Allergies Home Medications Medication Instructions Recorded Confirmed Type Lactobac 51-Bifidobac 1 cap PO DAILY 09/26/22 08/05/24 History 3-L.lactis-S.thermophilus 4 billion cell capsule (Daily Probiotic (10 Strains)) thiamine HCl (vitamin B1) 100 mg 100 mg PO DAILY 09/26/22 08/05/24 History tablet cholecalciferol (vitamin D3) 125 125 mcg PO DAILY 07/05/23 08/05/24 History mcg (5,000 unit) tablet citalopram 20 mg tablet 20 mg PO DAILY #90 tabs 10/11/23 08/05/24 Rx hydrochlorothiazide 25 mg tablet 25 mg PO DAILY #90 tabs 10/23/23 08/05/24 Rx losartan 100 mg tablet 100 mg PO DAILY #90 tabs 01/07/24 08/05/24 Rx aspirin 81 mg tablet,delayed 81 mg PO DAILY 03/26/24 08/05/24 History release biotin 5 mg capsule 5 mg PO DAILY 03/26/24 08/05/24 History famotidine 20 mg tablet 20 mg PO DAILY #90 tabs 04/01/24 08/05/24 Rx Allergies Allergy/AdvReac Type Severity Reaction Status Date / Time bimatoprost [From Jake] Allergy Severe eye red Verified 08/05/24 08:46 potassium iodide Allergy Unknown swelling Verified 08/05/24 08:46 morphine AdvReac Intermediate Nausea and Verified 08/05/24 08:46 Vomiting erythromycin base AdvReac Unknown Nausea Verified 08/05/24 08:46 PIMA INHALER Allergy Mild FACIAL Uncoded 08/05/24 08:46 TINGLING Vital Signs Vital Signs - 24 hr 08/05/24 08:47 Temperature 96.3 F L Pulse Rate 75 Respiratory Rate 20 Blood Pressure 146/80 H Pulse Oximetry 100 Oxygen Delivery Room Air Exam Const: General: comfortable and no acute distress HENMT: Face/Nose/Sinus: Normal nares present Eyes: General: appearance blanco
[2024-08-05 10:15] VITALS: BP 112/71; PULSE 74; RESP 20; O2SAT 99
[2024-08-05 10:25] VITALS: BP 164/72; PULSE 71; RESP 20; O2SAT 99
[2024-08-05 10:35] VITALS: BP 155/83; PULSE 74; RESP 18; O2SAT 100
== END 2024-08-05 10:50 | disposition home or self-care (01) ==
PROVIDERS: PCP Family Medicine; Visit Provider Internal Medicine Gastroenterology
PROC: 0DJD8ZZ Inspection of Lower Intestinal Tract, Via Natural or Artificial Opening Endoscopic (ICD-10-PCS; CPT 45378; principal; 2024-08-05 10:00)
DX: Z12.11 Encounter for screening for malignant neoplasm of colon (principal); K63.5 Polyp of colon; K57.30 Diverticulosis of large intestine without perforation or abscess without bleeding; K63.89 Other specified diseases of intestine; Q27.33 Arteriovenous malformation of digestive system vessel; I10 Essential (primary) hypertension; I35.0 Nonrheumatic aortic (valve) stenosis; I73.9 Peripheral vascular disease, unspecified; M06.9 Rheumatoid arthritis, unspecified; E66.9 Obesity, unspecified; Z68.29 Body mass index [BMI] 29.0-29.9, adult; Z79.82 Long term (current) use of aspirin; Z98.890 Other specified postprocedural states; Z95.2 Presence of prosthetic heart valve; Z87.891 Personal history of nicotine dependence; Z80.1 Family history of malignant neoplasm of trachea, bronchus and lung; Z82.49 Family history of ischemic heart disease and other diseases of the circulatory system
CPT/HCPCS: 45388; 45385; 88305; J0290; J1580; J2003; J2704; J7120

== ENCOUNTER 2024-09-10 10:27 | Outpatient (CLI) | payer MEDICARE, SELFPAY ==
--- NOTE | ~2024-09-10 | MM_ITS ---
EXAMINATION: MM screening swetha BI w jenaro HISTORY: Screening mammogram TECHNIQUE: Craniocaudal and mediolateral oblique 3-D tomosynthesis images were obtained and synthetic 2-D images were generated. CAD analysis was submitted and interpreted. COMPARISON: 04/02/2023, 07/13/2021, 06/04/2020 BREAST PARENCHYMAL COMPOSITION:Not Dense. The breasts are almost entirely fatty FINDINGS: No suspicious mass, calcification, or architectural distortion are identified in either [place] ast to suggest malignancy. There has been no suspicious interval change. IMPRESSION: No mammographic evidence of malignancy. Recommend routine screening mammography in one year. BI-RADS Category 1: Negative Reviewed, dictated and finalized at location . [facility] [place]
== END 2024-09-10 10:28 | disposition home or self-care (01) ==
PROVIDERS: PCP Family Medicine; Visit Provider Family Medicine
DX: Z12.31 Encounter for screening mammogram for malignant neoplasm of breast (principal)
CPT/HCPCS: 77063; 77067

== ENCOUNTER 2025-05-25 11:18 | Outpatient (CLI) | payer MEDICARE, SELFPAY ==
--- NOTE | ~2025-05-25 | CT_ITS ---
CT Scan of the Chest without Contrast: Clinical Indication: Lung cancer screening, nicotine dependence Technique: Contiguous sections were acquired throughout the chest without intravenous contrast. Dose reduction technique was used on this scan by utilizing automated exposure control and iterative recon struction technique. The dose-length product (DLP) was 98.88 mGy-cm. COMPARISON: 05/06/2024 Findings: There is no evidence of any significant mediastinal, hilar or axillary lymphadenopathy. Status post a ortic valve replacement. There is no evidence of pleural or pericardial effusion. Stable 3 mm nodule in the medial right lung apex (axial image 18). Stable 6 mm nodule in the superior segment right lower lobe (axial image 53). Images through the upper abdomen reveal no abnormalities. Impression: Lung RADS 2: Benign appearance. 12 month follow-up screening CT advised. Reviewed, dictated and finalized at [facility]. Impression: Lung RADS 2: Benign appearance. 12 month follow-up screening CT advised.
--- OUTSIDE RECORDS SUMMARY | 2025-05-25 11:42 | XMS_ITS | Clinical Summary ---
Author Organization [facility] [address] Address [address] [place] [address] Care Team Providers Care Web Site Project Manager Name Role Phone Rick Santana MD Primary Care Provider [phone] Rick Santana MD Unavailable [phone] Jorgito Rivera MD Unavailable [phone] James Peterson MD Unavailable Allergies Active Allergy Reactions Criticality Noted Date Comments Erythromycin Other (See comments) Low 08/22/2021 Worsen symptoms per patient Bimatoprost Other (See comments) Low 05/23/2022 Red eye Potassium Iodide Other (See comments) Low 1 Per patient- made mouth feel weird Reaction: Medications citalopram (CeleXA) 20 mg tablet Take 1 tablet (20 mg total) by mouth daily 1 Active hydroCHLOROthiaz oliva (HYDRODIURIL) 25 mg tablet Take 1 tablet (25 mg total) by mouth daily 1 Active losartan (COZAAR) 100 mg tablet Take 1 tablet (100 mg total) by mouth daily 1 Active Lactobac no.41/Bifidobact no.7 (PROBIOTIC-10 ORAL) Take by mouth Align probiotic Active thiamine (VITAMIN B1) 100 mg tablet Take 1 tablet (100 mg total) by mouth daily Active cholecalciferol (VITAMIN D-3) 07573 unit tablet Take 1 tablet (10,000 Units total) by mouth daily Active famotidine (PEPCID) 20 mg tablet Take 1 tablet (20 mg total) by mouth daily 3 Active acetaminophen 500 mg capsuleIndicatio ns:Pain Take 2 capsules (1,000 mg total) by mouth every 6 (six) hours as needed for pain 3 Active aspirin 81 mg enteric coated tablet Take 1 tablet (81 mg total) by mouth daily 30 tablet 11 3 03/12/20 26 Active biotin 5 mg tablet Take 1 tablet by mouth daily Active magnesium gluconate 200 mg tabletIndication s:hypomagnesemia 1 tablet (200 mg total) Active metFORMIN (GLUCOPHAGE) 500 mg tablet Take 1 tablet (500 mg total) by mouth 2 (two) times a day with meals Active nitrofurantoin monohydrate (MACROBID) 100 mg capsule Take 1 capsule (100 mg total) by mouth 2 (two) times a day Active Active Problems Problem Noted Date Diagnosed Date PSVT (paroxysmal supraventricular tachycardia) 0 11/23/2023 History of bicuspid aortic valve 09/18/2023 Other specified anemias 09/18/2023 Status post transcatheter ao rtic valve replacement (TAVR) using bioprosthesis 07/23/2023 Assessment & Plan (07/24/2024 1:33 PM CDT): S/p TAVR 1 year TAVR ago. The valve is functioning well. No additional TAVR follow up at this time. Assessment & Plan (08/16/2023 2:14 PM CDT): S/p TAVR 1 month ago. The valve is functioning well. We will plan for a 1 year TAVR follow up. Encounter for examination fo r normal comparison and control in clinical research program 07/10/2023 Abnormal echocardiogram 09/08/2022 WALTRES (dyspnea on exertion) 09/08/2022 Aortic stenosis due to bicuspid aortic valve 11/2021 Mixed hyperlipidemia 05/23/2022 Positive sm/ELECTRONICS PRODUCTION SUPERVISOR antibody 09/28/2021 Anaclitic depression 11/28/2011 Hypertension 11/28/2011 Resolved Problems Problem Noted Date Diagnosed Date Resolved Date Aortic stenosis 07/18/2023 07/24/2024 Nonrheumatic aortic valve stenosis 07/10/2023 07/24/2024 Primary hypertension 05/23/2022 023 Encounters Date Type Department Care Team Description 03/12/2025 10:15 AM CDT Office Visit [facility] Cardiology at [address] [place] [address] James Peterson MD Status post transcatheter aortic valve replacement (TAVR) using bioprosthesis (Primary Dx); Primary hypertension; Mixed hyperlipidemia; PSVT (paroxysmal supraventricular tachycardia) from Last 3 Months Surgical History Surgery Date Site/Laterality Comments EXOSTECTOMY Simple Bunion Exostectomy (Silver Procedure) - (Added by TW Conv) ANKLE FRACTURE SURGERY BLADDER SURGERY 10/22/1998 - 10/21/1999 ANKLE SURGERY 10/22/2001 - 10/21/2002 SINUS SURGERY Bilateral ABDOMINOPLASTY 10/22/1998 - 10/21/1999 BUNIONECTOMY 10/22/1989 - 10/21/1990 CHOLECYSTECTOMY 10/22/2006 - 11/21/2006 ERCP 10/22/2006 - 10/21/2007 EYE SURGERY 09/23/2021 Left glaucoma surgery TRANSCATHETER AORTIC VALVE REPLACEMENT 07/18/2023 29 Evolut FRACTURE SURGERY 08/2002 CARDIAC VALVE REPLACEMENT 07/18/2023 Medical History Medical History Date Comments Chronic sinusitis Sinusitis - (A dded by TW Conv) Nontraumatic subarachnoid hemorrhage Subarachnoid hemorrhage - (Added by TW Conv) 1989 Depression Anxiety Hypertension Nonrheumatic aortic (valve) stenosis Glaucoma Approximately 2016 Heart disease TAVR Procedure perfo rmed 07/18/23 History of transcatheter aortic valve replacement (TAVR) Family History Medical History Relation Name Comments Cancer Brother Yassine Martinez Lung cancer Brother Yassine Martinez Alzheimer's disease Father Raymond Martinez Aortic stenosis Father Raymond Martinez Heart disease Father Raymond Martinez heart valve replacement Father Raymond EppsMerced Martinez Hearing loss Mother Arin Martinez Hypertension Mother Arin Martinez Osteoporosis Mother Arin Martinez brain tumor Mother Arin Martinez Heart disease Other Heart Disease - (Added by TW Conv) Cancer Sister Vandana Paulina Lung cancer Sister Vandana Gallardo Vision loss Sister Vandana Gallardo Stroke Son Jose Armando Kelly Jr. Relation Name Status Comments Brother Yassine Martinez Father Raymond Martinez Mother Arin Martinez Alive Other Sister Vandana Gallardo Son Jose Armando Jr Robin. Social History Tobacco Use Types Packs/Day Years Used Date Smoking Tobacco: Former Cigarettes 0.8 16.1 1 - 07/22/2014 Smokeless Tobacco: Former Quit: 07/22/2015 Tobacco Cessation:Counseling Given: Not Answered Comments:I smoked off and on through those prior years Social Connection and Isolat ion Panel [NHANES] Answer Date Recorded In a typical week, how many times do you talk on the phone with family, friends, or neighbors? More than three times a week 07/20/2023 How often do you get togethe r with friends or relatives? More than three times a week 07/20/2023 How often do you attend chur ch or temple services? More than 4 times per year 07/20/2023 Do you belong to any clubs o r organizations such as oriental orthodox groups, unions, fraternal or athletic groups, or school groups? Yes 07/20/2023 How often do you attend meet ings of the clubs or organizations you belong to? Never 07/20/2023 Are you , , di vorced, , never , or living with a partner? 07/20/2023 Overall Financial Resource Strain (CARDIA) Answe r Date Recorded How hard is it for you to pa y for the very basics like food, housing, medical care, and heating? Not very hard 07/20/2023 Hunger Vital Sign Answer Date Recorded Within the past 12 months, y ou worried that your food would run out before you got the money to buy more. Never true 07/20/20 23 Within the past 12 months, t he food you bought just didn't last and you didn't have money to get more. Never true 07/20/2023 PRAPARE - Transportation Answer Date Re corded In the past 12 months, has l ack of transportation kept you from medical appointments or from getting medications? No 06/23 In the past 12 months, has l ack of transportation kept you from meetings, work, or from getting things needed for daily living? No 07/20/2023 Housing Stability Vital Sign Answer Nate e Recorded In the last 12 months, was t here a time when you were not able to pay the mortgage or rent on time? No 07/20/2023 In the last 12 months, how many places have you lived? 1 07/20/2023 In the last 12 months, was t here a time when you did not have a steady place to sleep or slept in a mcfp (including now)? No 07/20/2023 Personal Safety Answer Date Recorded Have you ever been in or are you currently in a harmful physical or emotional relationship or is someone making you feel afraid or unsafe? Denies 07/18/2023 Comments Unknown Sex and Gender Information Value Date Recorded Sex Assigned at Not on file Legal Sex Female 9:59 AM CDT Gender Identity Female 06/21/2023 2:09 PM CDT Sexual Orientation Straight 06/21/2023 2: 09 PM CDT Obstetrics History Last Filed Vital Signs Vital Sign Reading Time Taken Comments Blood Pressure 114/80 03/12/2025 10:30 AM CDT Pulse 90 03/12/2025 10:30 AM CDT Temperature 36.8 C (98.3 F) 07/22/2023 11:39 AM CDT Respiratory Rate 16 07/24/2024 1:22 PM CDT Oxygen Saturation 98% 03/12/2025 10:30 AM CDT Inhaled Oxygen Concentration - - Weight 75.3 kg (166 lb) 03/12/2025 10:30 AM CDT Height 168.9 cm (5' 6.5) 03/12/2025 10:30 AM CD T Body Mass Index 26.39 03/12/2025 10:30 AM CDT Plan of Treatment Health Maintenance Due Date Last Done Comments Breast Cancer Screening-Mammogram 1954 Colon Cancer Screening-Colonoscopy 1954 Depression Screening 1954 Hepatitis C Screening 1954 Osteoporosis Screening-Bone Density Scan 1954 DTaP/Tdap/Td Vaccine (1 - Tdap) 1965 Hepatitis B Screening 1972 Well Visit 65+ 2019 Covid-19 Vaccine (2023-2 5 season) 2024 05/05/2022, 10/04/2021, 01/10/2021, Additional history exists Fall Risk Assessment 07/22/2024 07/22/2023 Influenza Vaccine (#1) 2025 , 07/05/2022, 07/13/2021, Additional history exists Zoster Vaccine Completed 07/14/2020, 05/12/2020 Pneumococcal vaccine 65+ Completed 04/12/2021, 11/23 Medical Devices Implanted Type Area Automotive Service Consultant Device Identifier Shelf Expiration Date Model / Serial / Lot Medtronic Inc Valve Aortic Porcine Trnscath Evolut 29mm Evolutfx-29 - [id number] - [id number] Implanted:Qty: 1 on 07/18/2023 by Sean Alatorre MD at [facility] Prosthetic Valve N/A: Aortic Valve Medtronic Inc [id number] 05/10/2025 EVOLUTF X-29 / [id number] / Teleflex Medical Inc 18f Manta Vascular Closure Device 2115 - [id number] - [id number] Implanted:Qty: 1 on 07/18/2023 by Sean Alatorre MD at [facility] Vascular Closure Device Right: Common Femoral Artery Teleflex Medical Inc 11/14/2024 2115 / [id number] / [id number] Hansen Vascular Device Clsr Perclose Prostyle Sut-Mediatd Closure-Repair Sys 76862-57 - S0 - [id number] Implanted:Qty: 1 on 07/18/2023 by Sean Alatorre MD at [facility] Vascular Closure Device Left: Femoral Hansen Vascular 04/20/2025 [id number] 3 / 0 / [id number] Cryolife Inc Graft Biological Cardiovascular Photofix 6x8cm Acellular Dermis Pfp 6x8 - [id number] - [id number] Implanted:Qty: 1 on 07/18/2023 by Jorgito Rivera MD at [facility] N/A: Heart Cryolife Inc 03/11/2025 PFP 6X8 / [id number] / [id number] Pomeroy [employer] Associates Inc Stent Endoprosthesis 59mm 8mm 11mm 7fr Pomeroy Viabahn 135cm Balloon Expandable Guidewire [id number] - [id number] - [id number] Implanted:Qty: 1 on 07/18/2023 by Sean Alatorre MD at [facility] N/A: Aorta Wl [employer] Inc 06/04/2026 [id number] / [id number] / Procedures Procedure Name Priority Date/Time Associated Diagnosis Comments POCT LIPID PANEL Routine 03/12/2025 10:2 5 AM CDT Mixed hyperlipidemia from Last 3 Months Results * (ABNORMAL) POCT lipid panel (03/12/2025 10:25 AM CDT) Cholesterol, POC 180 <200 MG/DL HDL, POC 49 >=40 mg/dL Triglycerides, POC 160(A) <=149 mg/dL LDL Cholesterol POC 99 <=129 mg/dL Chol/HDL Ratio, POC 3.7 NONE Non-HDL Cholesterol, POC 131 NONE mg/dL Cholesterol Total, POC 180 30 - 199 mg/dL Capillary blood 03/12/2025 1 0:25 AM CDT James Petersno MD POINT OF CARE TEST ORDERA BLES Final Result from Last 3 Months Insurance [facility] MEDICARE ADVANTAGE [facility] MEDICARE ADVANTAGE [id number] [facility] MEDICARE ADVANTAGE [address] Advance Directives For more information, please contact: [phone] * Full Code (Latest Code Status on File) Date Activated Date Inactivated Comments 07/18/2023 6:38 AM 07/22/2023 7:08 PM Care Teams Web Site Project Manager Relationship Specialty Start Date End Date Rick Santana MD PCP - General Family Medicine 09/27/22 Rick Santana MD Family Medicine 09/27/22 Jorgito Rivera MD [address] [address] [place] [address] Consulting Physician Cardiothoracic Surgery 07/18/23 James Peterson MD [address] [place] [address] [place] [address] Consulting Physician Cardiology 07/24/24
--- OUTSIDE RECORDS SUMMARY | 2025-05-25 11:42 | XMS_ITS | Referral Summary ---
Author Organization [facility] [address] Address [address] [place] [address] Care Team Providers Care Tube Coverer Name Role Phone Rick Santana MD Primary Care Provider [phone] Rick Santana MD Unavailable [phone] Jorgito Rivera MD Unavailable [phone] James Peterson MD Unavailable [phone] Encounters Date Type Department Care Team Description 03/12/2025 10:15 AM CDT Office Visit [facility] Cardiology at [address] [place] [address] James Peterson MD Status post transcatheter aortic valve replacement (TAVR) using bioprosthesis (Primary Dx); Primary hypertension; Mixed hyperlipidemia; PSVT (paroxysmal supraventricular tachycardia) from Last 3 Months Allergies Active Allergy Reactions Criticality Noted Date [...] by mouth daily Active cholecalciferol (VITAMIN D-3) 71781 unit tablet Take 1 tablet (10,000 Units [...] clinical research program 07/10/2023 Abnormal echocardiogram 09/08/2022 WALTERS (dyspnea on exertion) 09/08/2022 Aortic stenosis due to bicuspid aortic valve 11/2021 Mixed hyperlipidemia 05/23/2022 Positive sm/DRAWER LINER antibody 09/28/2021 Anaclitic depression 11/28/2011 Hypertension 11/28/2011 Resolved Problems Problem Noted Date Diagnosed Date Resolved Date Aortic stenosis 07/18/2023 07/24/2024 Nonrheumatic aortic valve stenosis 07/10/2023 07/24/2024 Primary hypertension 05/23/2022 023 Social History Tobacco Use Types Packs/Day Years [...] often do you attend chur ch or religion services? More than 4 times per year 07/20/2023 Do you belong to any clubs o r organizations such as anglican groups, unions, fraternal or athletic groups, or [...] place to sleep or slept in a skilled nursing (including now)? No 07/20/2023 Personal Safety Answer [...] Orientation Straight 06/21/2023 2: 09 PM CDT Last Filed Vital Signs Vital Sign Reading [...] 03/12/2025 10:30 AM CDT Plan of Treatment Not on file Medical Devices Implanted Type Area Women Designer Device Identifier Shelf Expiration Date Model / Serial / Lot Medtronic Inc Valve Aortic Porcine Trnscath Evolut 29mm Evolutfx-29 - [id number] - [id number] Implanted:Qty: 1 on 07/18/2023 by Sean Alatorre MD at [facility] Prosthetic Valve N/A: Aortic Valve Medtronic Inc [id number] 05/10/2025 EVOLUTF X-29 / [id number] / Teleflex Medical Inc 18f Manta Vascular Closure Device 2115 - [id number] - [id number] Implanted:Qty: 1 on 07/18/2023 by Sean Alatorre MD at [facility] Vascular Closure Device Right: Common Femoral Artery Teleflex Medical Inc 11/14/2024 2115 / [id number] / [id number] Hansen Vascular Device Clsr Perclose Prostyle Sut-Mediatd Closure-Repair Sys 04165-75 - S0 - [id number] Implanted:Qty: 1 on 07/18/2023 by Sean Alatorre MD at [facility] Vascular Closure Device Left: Femoral Hansen Vascular 04/20/2025 04999-3 3 / 0 / [id number] Cryolife Inc Graft Biological Cardiovascular Photofix 6x8cm Acellular Dermis Pfp 6x8 - [id number] - [id number] Implanted:Qty: 1 on 07/18/2023 by Jorgito Rivera MD at [facility] N/A: Heart Cryolife Inc 03/11/2025 PFP 6X8 / [id number] / [id number] Wl Dixon [employer] Associates Inc Stent Endoprosthesis 59mm 8mm 11mm 7fr Dixon Viabahn 135cm Balloon Expandable Guidewire [id number] - [id number] - [id number] Implanted:Qty: 1 on 07/18/2023 by Sean Alatorre MD at [facility] N/A: Aorta Wl [employer] Inc 06/04/2026 [id number] / [id number] / Procedures Procedure Name Priority Date/Time Associated [...] blood 03/12/2025 1 0:25 AM CDT James Peterson MD POINT OF CARE TEST ORDERA BLES Final Result from Last 3 Months Insurance [facility]IC[facility] Address: [facility] [address] [place] [address] [facility] MEDICARE ADVANTAGE [facility] Address: [address] [address] [place] [address] [facility] MEDICARE ADVANTAGE [facility] MED[facility] Address: [address] [address] [place] [address] Advance Directives For more information, please contact: [phone] * Full Code (Latest Code Status on File) Date Activated Date Inactivated Comments 07/18/2023 6:38 AM 07/22/2023 7:08 PM Care Teams Tube Coverer Relationship Specialty Start Date End Date Rick Santana MD PCP - General Family Medicine 09/27/22 Rick Santana MD Family Medicine 09/27/22 Jorgito Rivera MD [address] [place] [address] Consulting Physician Cardiothoracic Surgery 07/18/23 James Peterson MD [address] [place] [address] [place] [address] Consulting Physician Cardiology 07/24/24
--- OUTSIDE RECORDS SUMMARY | 2025-05-25 11:42 | XMS_ITS | Encounter Summary ---
Author Organization [facility] Address [address] [place] [address] Phone Care Team Providers Care Hand Cooper Helper Name Role Phone Brandy Boo MD Primary Care Provider [phone] Rick Santana MD Primary Care Provider [phone] Rick Santana MD Primary Care Provider [phone] Rick Santana MD Unavailable Jorgito Rivera MD Unavailable [phone] James Peterson MD Unavailable Encounter Details Date Type Department Care Team (Late st Contact Info) Description 05/06/2021 Orders Only [facility] Scanning, Provider Social History Tobacco Use Types Packs/Day Years Used Date Smoking Tobacco: Never Assessed Comments Unknown Sex and Gender Information Value Date Recorded Sex Assigned at Not on file Legal Sex Female 9:59 AM CDT Gender Identity Female 06/21/2023 2:09 PM CDT Sexual Orientation Straight 06/21/2023 2: 09 PM CDT documented as of this encounter Plan of Treatment Not on file documented as of this encounter Procedures Procedure Name Priority Date/Time Associated Diagnosis Comments SCAN - LABS 05/06/2021 documented in this encounter Results * SCAN - LABS (05/06/2021) Provider Scanning Final Result documented in this encounter Visit Diagnoses Not on filedocumented in this encounter Care Teams Hand Cooper Helper Relationship Specialty Start Date End Date Brandy Boo MD [address] [place] [address] PCP - General Family Medicine 08/22/21 09/03/22 Rick Santana MD [address] [place] [address] PCP - General Family Medicine 09/04/22 09/26/22 Rick Santana MD [address] [place] [address] PCP - General Family Medicine 09/27/22 Rick Santana MD [address] [place] [address] Family Medicine 09/27/22 Jorgito Rivera MD [address] [place] [address] Consulting Physician Cardiothoracic Surgery 07/18/23 James Peterson MD [address] [place] [address] [place] [address] Consulting Physician Cardiology 07/24/24 documented as of this encounter
== END 2025-05-25 11:19 | disposition home or self-care (01) ==
PROVIDERS: PCP Family Medicine; Visit Provider Family Medicine
DX: Z12.2 Encounter for screening for malignant neoplasm of respiratory organs (principal); Z87.891 Personal history of nicotine dependence
CPT/HCPCS: 71271